=== PATIENT | female | born 1975 | race American Indian/Alaskan Native ===

== ENCOUNTER 2020-07-21 13:30 | Emergency (ER) | payer MEDICAID ==
[2020-07-21] MEDS ORDERED: SODIUM CHLORIDE 0.9% 1000 ML 2,000 ML IV ONE (15:56)
[2020-07-21] MEDS ORDERED: ONDANSETRON 4 MG/2 ML INJ IV ONE (15:56)
[2020-07-21 16:00] LABS: Basophils % (Auto) 0.1 % (0.0-1.8); Eosinophils # (Auto) 0.1 K/mm3 (0.0-0.4); Eosinophils % (Auto) 0.6 % (0.0-4.3); Hemoglobin 12.6 gm/dl (10.1-14.3); Lymphocytes # (Auto) 1.9 K/mm3 (1.2-5.4); Lymphocytes % (Auto) 15.4 % (13.4-35.0); Mean Corpuscular HGB Conc 33 % (30-34); Mean Corpuscular Volume 96 fl (79-97); Monocytes # (Auto) 0.8 K/mm3 (0.0-0.8); Monocytes % (Auto) 6.3 % (0.0-7.3); Platelet Count 306 K/mm3 (140-440); Red Blood Count 3.97 M/mm3 (3.65-5.03); Red Cell Distribution Width 13.7 % (13.2-15.2)
--- NOTE | 2020-07-21 16:02 | Emergency Department Report ---
ED N/V/D HPI - General Chief complaint: Nausea/Vomiting/Diarrhea Stated complaint: 9.5WKS /VOMITING/DEHYDRATED Time Seen by Provider: 07/21/20 15:55 Source: patient Mode of arrival: Ambulatory Limitations: No Limitations - History of Present Illness Initial comments: Is a pleasant 44-year-old female presents the emergency department with chief c omplaint of nausea and vomiting. Patient reports she is 9-1/2 weeks and went to her [facility] this morning for the first time and they sent to the emergency department due to concerns for dehydration. She reports she has lost 4 pounds since the started. This is her fifth . She denies any lower abdominal pain, vaginal bleeding, fever, chills, night sweats, headache, dizziness, blurry vision, hematemesis, melena, hematochezia or any other associated symptoms. She denies any pain. - Related Data Previous Rx's Medication Instructions Recorded Last Taken Type Promethazine [Phenergan] 25 mg PO Q6HR PRN #20 tab 07/21/20 Unknown Rx Allergies Allergy/AdvReac Type Severity Reaction Status Date / Time Penicillins Allergy Rash Verified 12/28/13 10:42 ED Review of Systems ROS: Stated complaint: 9.5WKS /VOMITING/DEHYDRATED Other details as noted in HPI Constitutional: denies: chills, fever Eyes: denies: eye pain, eye discharge, vision change ENT: denies: ear pain, throat pain Respiratory: denies: cough, shortness of breath, wheezing Cardiovascular: denies: chest pain, palpitations Endocrine: no symptoms reported Gastrointestinal: as per HPI, nausea. denies: abdominal pain, diarrhea Genitourinary: denies: urgency, dysuria, discharge Musculoskeletal: denies: back pain, joint swelling, arthralgia Skin: denies: rash, lesions Neurological: denies: headache, weakness, paresthesias Psychiatric: denies: anxiety, depression Hematological/Lymphatic: denies: easy bleeding, easy bruising ED Past Medical Hx - Past Medical History Previous Medical History?: Yes Hx Headaches / Migraines: Yes Additional medical history: Fibromyalgia - Surgical History Past Surgical History?: Yes Additional Surgical History: c section x 3 - Social History Smoking Status: Never Smoker - Medications Home Medications: Home Medications Medication Instructions Recorded Confirmed Last Taken Type Promethazine [Phenergan] 25 mg PO Q6HR PRN #20 tab 07/21/20 Unknown Rx ED Physical Exam - General Limitations: No Limitations General appearance: alert, in no apparent distress - Head Head exam: Present: atraumatic, normocephalic - Eye Eye exam: Present: normal appearance, PERRL, EOMI Pupils: Present: normal accommodation - ENT ENT exam: Present: normal exam, normal orophraynx, mucous membranes moist - Neck Neck exam: Present: normal inspection, full ROM. Absent: tenderness, menin gismus - Respiratory Respiratory exam: Present: normal lung sounds bilaterally. Absent: respiratory distress, wheezes, rales, rhonchi, stridor - Cardiovascular Cardiovascular Exam: Present: regular rate, normal rhythm, normal heart sounds. Absent: systolic murmur, diastolic murmur, rubs, gallop - GI/Abdominal GI/Abdominal exam: Present: soft, normal bowel sounds. Absent: distended, tenderness, guarding, rebound, rigid - Extremities Exam Extremities exam: Present: normal inspection, full ROM, normal capillary refill. Absent: tenderness, calf tenderness - Back Exam Back exam: Present: normal inspection, full ROM. Absent: tenderness, CVA tenderness (R), CVA tenderness (L) - Neurological Exam Neurological exam: Present: alert, oriented X3, normal gait - Psychiatric Psychiatric exam: Present: normal affect, normal mood - Skin Skin exam: Present: warm, dry, intact, normal color. Absent: rash ED Course Vital Signs 07/21/20 13:44 Temperature 97.8 F Pulse Rate 73 Respiratory 16 Rate Blood Pressure 113/71 O2 Sat by Pulse 100 Oximetry - Reevaluation(s) Reevaluation #1: 07/21/20 16:02 Patient is nontoxic in no acute distress, mucous membranes are moist. Vital signs are stable. I did order 2 L of normal saline and antiemetics. If the patient is feeling better and able tolerate p.o. fluids will discharge her home with antiemetics and outpatient follow-up. She is agreeable this plan. 07/21/20 16:02 Reevaluation #2: 07/21/20 16:48 On reevaluation patient is feeling much better. Labs returned relatively unremarkable. Plan to discharge the patient home with antiemetics and [facility] follow-up. Recommend she return the emerge department any change or worsening symptoms. She verbalized understand the diagnosis, treatment plan and follow-up instructions and all of her questions were answered. ED Medical Decision Making - Lab Data Result diagrams: 07/21/20 15:35 07/21/20 15:35 Lab Results 07/21/20 07/21/20 07/21/20 Range/Units 15:35 15:35 15:35 WBC 12.6 H (4.5-11.0) K/mm3 RBC 3.97 (3.65-5.03) M/mm3 Hgb 12.6 (10.1-14.3) gm/dl Hct 38.0 (30.3-42.9) % MCV 96 (79-97) fl MCH 32 (28-32) pg MCHC 33 (30-34) % RDW 13.7 (13.2-15.2) % Plt Count 306 (140-440) K/mm3 Lymph % (Auto) 15.4 (13.4-35.0) % Graham % (Auto) 6.3 (0.0-7.3) % Eos % (Auto) 0.6 (0.0-4.3) % Baso % (Auto) 0.1 (0.0-1.8) % Lymph # (Auto) 1.9 (1.2-5.4) K/mm3 Graham # (Auto) 0.8 (0.0-0.8) K/mm3 Eos # (Auto) 0.1 (0.0-0.4) K/mm3 Baso # (Auto) 0.0 (0.0-0.1) K/mm3 Seg Neutrophils % 77.6 H (40.0-70.0) % Seg Neutrophils # 9.8 H (1.8-7.7) K/mm3 Sodium 135 L (137-145) mmol/L Potassium 4.0 (3.6-5.0) mmol/L Chloride 99.7 (98-107) mmol/L Carbon Dioxide 25 (22-30) mmol/L Anion Gap 14 mmol/L BUN 9 (7-17) mg/dL Creatinine 0.6 (0.6-1.2) mg/dL Estimated GFR > 60 ml/min BUN/Creatinine Ratio 15 % Glucose 88 (65-100) mg/dL Calcium 9.9 (8.4-10.2) mg/dL Total Bilirubin 0.60 (0.1-1.2) mg/dL AST 13 (5-40) units/L ALT 8 (7-56) units/L Alkaline Phosphatase 51 (35-129) units/L Total Protein 7.7 (6.3-8.2) g/dL Albumin 4.0 (3.9-5) g/dL Albumin/Globulin Ratio 1.1 % Lipase 12 L (13-60) units/L HCG, Quant [id number] H (0-4) mIU/mL - Medical Decision Making Patient nontoxic in no acute distress. Vital signs stable. Abdominal exam was benign. She was tolerating p.o. fluids and felt much better after IV fluids and antiemetics. I recommended follow-up with [facility] return the emerge department change or worsening symptoms. She verbalized understand the diagnosis, treatment plan and follow-up instructions and all of her questions were answered. - Differential Diagnosis Hyperemesis gravidarum, enteritis, small bowel obstruction Critical care attestation.: If time is entered above; I have spent that time in minutes in the direct care of this critically ill patient, excluding procedure time. ED Disposition Clinical Impression: Hyperemesis gravidarum Disposition: DC- TO HOME OR SELFCARE Is pt being admited?: No Condition: Stable Instructions: Hyperemesis Gravidarum Prescriptions: Promethazine [Phenergan] 25 mg PO Q6HR PRN #20 tab PRN Reason: Nausea Referrals: [facility] [Provider Group] - 3-5 Days [facility] [Provider Group] - 3-5 Days Forms: Work/School Release Form(ED) Time of Disposition: 16:49
[2020-07-21 16:08] LABS: Alanine Aminotransferase 8 units/L (7-56); Blood Urea Nitrogen 9 mg/dL (7-17); Calcium 9.9 mg/dL (8.4-10.2); Hemolysis Index 0
[2020-07-21 16:15] LABS: BUN/Creatinine Ratio 15
[2020-07-21 18:56] VITALS: BP 128/78
== END 2020-07-21 18:56 | disposition home or self-care (01) ==
LOC: ED 13:30
DX: O21.0 Mild hyperemesis gravidarum (principal); O21.8 Other vomiting complicating pregnancy; G43.909 Migraine, unspecified, not intractable, without status migrainosus; Z3A.09 9 weeks gestation of pregnancy; Z98.890 Other specified postprocedural states; Z79.899 Other long term (current) drug therapy; Z88.0 Allergy status to penicillin
CPT/HCPCS: 36415; 80053; 83690; 84702; 85025; 96361; 96374; 99283; J2405; J7030

== ENCOUNTER 2020-12-02 12:27 | Outpatient (CLI) | payer MEDICAID ==
[2020-12-02] MEDS ORDERED: LACTATED RINGERS 1,000 ML IV SCH (13:00)
[2020-12-02] MEDS ORDERED: ONDANSETRON 4 MG/2 ML INJ IV ONE (13:19)
[2020-12-02 13:31] LABS: Bacteria,Urine 2+ /HPF (Negative); Bilirubin,Urine NEG (Negative); Blood,Urine SM (Negative); Color,Urine Yellow (Yellow); Mucus,Urine FEW /HPF; Urobilinogen,Urine < 2.0 mg/dL (<2.0)
[2020-12-02 14:38] LABS: Hemoglobin 11.4 gm/dl (10.1-14.3); Mean Corpuscular HGB Conc 32 % (30-34); Mean Corpuscular Volume 86 fl (79-97); Platelet Count 367 K/mm3 (140-440); Red Blood Count 4.06 M/mm3 (3.65-5.03); Red Cell Distribution Width 16.6 % (13.2-15.2)
[2020-12-02 15:02] LABS: Alanine Aminotransferase 13 units/L (7-56); Albumin 3.6 g/dL (3.9-5); BUN/Creatinine Ratio 13; Blood Urea Nitrogen 8 mg/dL (7-17); Calcium 9.6 mg/dL (8.4-10.2); Hemolysis Index 153
[2020-12-02 15:27] VITALS: BP 107/69
[2020-12-02] MEDS ORDERED: cefTRIAXone/NS 1 GM/50 ML 1 GM/50 ML BAG IV ONE (15:30)
== END 2020-12-02 17:00 | disposition home or self-care (01) ==
LOC: TRG 12:27 → APU 12:29 → TRG 17:00
PROVIDERS: ATTEND Obstetrics & Gynecology
DX: O21.2 Late vomiting of pregnancy (principal); O47.03 False labor before 37 completed weeks of gestation, third trimester; O09.523 Supervision of elderly multigravida, third trimester; Z3A.28 28 weeks gestation of pregnancy
CPT/HCPCS: 36415; 59025; 80053; 81001; 85027; 87086; 96361; 96365; 96367; J0696; J2405; J7120; 96360

== ENCOUNTER 2021-01-20 21:54 | Outpatient (CLI) | payer MEDICAID ==
[2021-01-20 22:51] VITALS: BP 117/57
[2021-01-20] MEDS ORDERED: LACTATED RINGERS 1,000 ML ONE (23:01)
[2021-01-20] MEDS ORDERED: LACTATED RINGERS 1,000 ML IV ONE (23:08)
== END 2021-01-21 00:45 | disposition home or self-care (01) ==
LOC: TRG 21:54 → APU 22:04 → TRG 01-21 00:45
DX: O36.8130 Decreased fetal movements, third trimester, not applicable or unspecified (principal); O62.9 Abnormality of forces of labor, unspecified; O09.523 Supervision of elderly multigravida, third trimester; Z3A.35 35 weeks gestation of pregnancy
CPT/HCPCS: 59025; J7120; 96360

== ENCOUNTER 2021-01-30 12:47 | Inpatient (IN) | payer MEDICAID ==
[2021-01-30] MEDS ORDERED: LOPERAMIDE 2 MG CAP PO PRN (13:31)
[2021-01-30] MEDS ORDERED: miSOPROStol 200 MCG TAB PR PRN (13:31)
[2021-01-30] MEDS ORDERED: MINERAL OIL 30 ML ORAL LIQD PO PRN (13:31)
[2021-01-30] MEDS ORDERED: TERBUTALINE 1 MG/1 ML INJ SUB-Q PRN (13:31)
[2021-01-30] MEDS ORDERED: OXYTOCIN 10 UNIT/1 ML INJ IM PRN (13:31)
[2021-01-30] MEDS ORDERED: LIDOCAINE (2%) 20 MG/1 ML VIAL 20 ML MDV INFILTRATI ONE (13:31)
[2021-01-30] MEDS ORDERED: METHYLERGONOVINE MALEATE 0.2 MG/ML VIAL IM PRN (13:31)
[2021-01-30] MEDS ORDERED: ePHEDrine SULFATE 50 MG/1 ML INJ IV PRN ×2 (13:31→22:53)
[2021-01-30] MEDS ORDERED: BUTORPHANOL 2 MG/1 ML INJ IV PRN (13:31)
[2021-01-30] MEDS ORDERED: CARBOPROST TROMETHAMINE 250 MCG/1 ML INJ IM PRN (13:31)
[2021-01-30] MEDS ORDERED: OXYTOCIN DRIP 30 UNITS/500 ML BAG IV SCH (14:00)
--- NOTE | 2021-01-30 14:37 | Ultrasound Report ---
ULTRASOUND OBSTETRIC LIMITED INDICATION / CLINICAL INFORMATION: NO HEART BEAT. TECHNIQUE: Transabdominal ultrasound imaging. COMPARISON: None available. FINDINGS: HEART RATE (beats per minute): 0 AMNIOTIC FLUID INDEX (cm) = not measured PRESENTATION: Cephalic. ADDITIONAL FINDINGS: None. IMPRESSION: demise Signer Name: Clayton Valles Jr, MD Signed: 01/30/2021 2:32 PM Workstation Name: [id number]
[2021-01-30 16:01] LABS: Hematocrit 33.3 % (30.3-42.9); Hemoglobin 10.3 gm/dl (10.1-14.3); Mean Corpuscular HGB Conc 31 % (30-34); Mean Corpuscular Volume 78 fl (79-97); Platelet Count 291 K/mm3 (140-440); Red Blood Count 4.25 M/mm3 (3.65-5.03); Red Cell Distribution Width 19.4 % (13.2-15.2)
[2021-01-30] MEDS ORDERED: miSOPROStol 25 MCG TAB VG PRN (17:00)
[2021-01-30] MEDS ORDERED: miSOPROStol 25 MCG TAB VG SCH (17:00)
--- NOTE | 2021-01-30 19:35 | History and Physical Report ---
History of Present Illness Date of examination: 01/30/21 Date of admission: 01/30/21 12:48 Chief complaint: Sent by [facility] for delivery due to demise at 37 weeks, 1 day gestation. History of present illness: 45 year old presents to L&D for delivery due to demise. Saw [facility] today and had ultrasound that showed demise, no cardiac activity and ascites. Patient received care at [facility]; no [facility] records are available. LMP 02/25/21. EDC 02/19/21. EGA 37 weeks, 1 day gestation. 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 labs are not available; will request records when office opens tomorrow morning. Past History Past Medical History: fibromyalgia, other (obesity) Past Surgical History: section (times 3) [facility] History: herpes. denies: chlamydia, gonorrhea, hepatitis B, hepatitis C, HIV, syphilis, trichomonas Family/Genetic History: diabetes, heart disease, hypertension, stroke Social history: lives with family, full code. denies: smoking, alcohol abuse, prescription drug abuse, IV drug use - Obstetrical History Expected Date of Delivery: 02/19/21 Actual Gestation: 37 Week(s) 1 Day(s) : 5 Para: 4 Hx # Term Pregnancies: 4 Number of Pregnancies: 0 Spontaneous Abortions: 0 Induced : 0 Number of Living Children: 4 Medications and Allergies Allergies Allergy/AdvReac Type Severity Reaction Status Date / Time Penicillins Allergy Rash Verified 12/28/13 10:42 Home Medications Medication Instructions Recorded Confirmed Last Taken Type Promethazine [Phenergan] 25 mg PO Q6HR PRN #20 tab 07/21/20 Unknown Rx Active Meds: Active Medications Butorphanol Tartrate (Butorphanol 2 Mg/1 Ml Inj) 2 mg IV Q2H PRN PRN Reason: Pain , Severe (7-10) Carboprost Tromethamine (Carboprost Tromethamine 250 Mcg/1 Ml Inj) 250 mcg IM ONCE PRN PRN Reason: Uterine Bleeding Ephedrine Sulfate (Ephedrine Sulfate 50 Mg/1 Ml Inj) 10 mg IV Q2M PRN PRN Reason: Hypotension Oxytocin/Sodium Chloride (Pitocin/Ns 30 Unit/500ml) 30 units in 500 mls @ 2 mls/hr IV TITR GIO; Protocol Lactated Ringer's (Lactated Ringers) 1,000 mls @ 125 mls/hr IV DIRECT GIO Loperamide HCl (Loperamide 2 Mg Cap) 2 mg PO ONCE PRN PRN Reason: give with Hemabate Methylergonovine Maleate (Methylergonovine Maleate 0.2 Mg/Ml Vial) 0.2 mg IM ONCE PRN PRN Reason: Uterine Bleeding Mineral Oil (Mineral Oil 30 Ml Oral Liqd) 30 ml PO QHS PRN PRN Reason: Constipation Misoprostol (Misoprostol 200 Mcg Tab) 800 mcg NH ONCE PRN PRN Reason: Uterine Bleeding Misoprostol (Misoprostol 25 Mcg Tab) 25 mcg VG Q10H [facility] Stop: 01/31/21 03:01 Oxytocin (Oxytocin 10 Unit/1 Ml Inj) 10 unit IM ONCE PRN PRN Reason: Uterine Bleeding Terbutaline Sulfate (Terbutaline 1 Mg/1 Ml Inj) 0.25 mg SUB-Q ONCE PRN PRN Reason: Hyperstimulation/Hypertonicity Review of Systems All systems: negative (grief process) - Vital Signs Vital signs: Vital Signs Pulse BP 99 H 120/80 01/30/21 13:45 01/30/21 13:45 Temp Pulse Resp BP Pulse Ox 98 F 99 H 16 120/80 01/30/21 14:10 01/30/21 13:45 01/30/21 14:10 01/30/21 13:45 - Physical Exam Abdomen: Positive: normal appearance, soft. Negative: distention, tenderness, guarding, rigidity Genitourinary (Female): Positive: normal external genitalia, normal perenium. Negative: perineal/vulvar lesions Vagina: Positive: normal moisture Uterus: Positive: enlarged. Negative: tender Anus/Rectum: Positive: normal perianal skin Extremities: Positive: normal - Obstetrical Uterine Contraction Monitor Mode: External Cervical Dilatation: 0.5 Cervical Effacement Percentage: 30 station: -3 Uterine Contraction Pattern: Absent Results Result Diagrams: 01/30/21 15:39 Abnormal lab results 01/30/21 Range/Units 15:39 WBC 11.5 H (4.5-11.0) K/mm3 MCV 78 L (79-97) fl MCH 24 L (28-32) pg RDW 19.4 H (13.2-15.2) % All other labs normal. Assessment and Plan A: at 37 weeks, 1 day gestation. demise. History of 3 previous sections. ICP. Obesity. P: Admit. [place] for contraction monitoring. Epidural. Cytotec for cervical ripening per Dr. Hay.
[2021-01-30] MEDS ORDERED: NALOXONE 2 MG/2 ML INJ IV PRN (22:53)
--- NOTE | 2021-01-30 22:53 | Anesthesia Consultation ---
Anesthesia Consult and Med Hx Date of service: 01/30/21 - Airway Anesthetic Teeth Evaluation: Poor Mental/Hyoid Distance: Adequate Mallampati Class: Class II Intubation Access Assessment: Probably Good - Pulmonary Exam CTA: Yes - Cardiac Exam Cardiac Exam: RRR - Pre-Operative Health Status ASA Pre-Surgery Classification: ASA2 Proposed Anesthetic Plan: Epidural - Pre-Anesthesia Comment Pre-Anesthesia Comments: csectionx3 - Pulmonary Hx Smoking: No Hx Asthma: No Hx Respiratory Symptoms: No SOB: No COPD: No Home Oxygen Therapy: No Hx Pneumonia: No Hx Sleep Apnea: No - Cardiovascular System Hx Hypertension: No Hx Coronary Artery Disease: No Hx Heart Attack/AMI: No Hx Angina: No Hx Percutaneous Transluminal Coronary Angioplasty (PTCA): No Hx Cardia Arrhythmia: No Hx Pacemaker: No Hx Internal Defibrillator: No Hx Valvular Heart Disease: No Hx Heart Murmur: No Hx Peripheral Vascular Disease: No - Central Nervous System Hx Neuromuscular Disorder: Yes (fibromyalgia) Hx Seizures: No CVA: No Hx Back Pain: No Hx Psychiatric Problems: No - Gastrointestinal Hx Ulcer: No Hx Gastroesophageal Reflux Disease: Yes - Endocrine Hx Renal Disease: No Hx End Stage Renal Disease: No Hx Cirrhosis: No Hx Liver Disease: No Hx Insulin Dependent Diabetes: No Hx Non-Insulin Dependent Diabetes: No Hx Thyroid Disease: No Hx Hypothyroidism: No Hx Hyperthyroidism: No - Hematic Hx Anemia: Yes Hx Sickle Cell Disease: No - Other Systems Hx Alcohol Use: No Hx Substance Use: No Hx Cancer: No Hx Obesity: Yes
--- NOTE | 2021-01-30 23:23 | Progress Note ---
Labor Epidural - Labor Epidural Start Time: 23:03 Stop Time: 23:11 Performed by:: MIKE BROWN Procedure: Patient is requesting a laboring epidural for laboring pain. Patient IDed, H&P reviewed, all questions and concerns were answered, and consent was signed. Timeout was performed at bedside. Patient in sitting position. Sterile prep and drape was performed. [3] ml of 1% lidocaine skin wheal at L[3]- L [4]. 18- gauge Tuohy epidural needle was advanced to loss of resistance with saline technique. Negative CSF negative blood. Epidural catheter advanced to [12] centimeters. [NEGATIVE] Aspiration [NEGATIVE] test dose. Sterile dressing applied. Patient tolerated procedure.
[2021-01-30] MEDS: fentaNYL-BUPIV 2 MCG/ML-0.125% 200 MCG/100 ML BAG EPIDURAL SCH (23:58)
[2021-01-31] MEDS ORDERED: ZOLPIDEM 5 MG TAB PO ONE (00:18)
[2021-01-31] MEDS: LACTATED RINGERS 1,000 ML IV SCH ×2 (05:14→20:11)
--- NOTE | 2021-01-31 08:13 | Progress Note ---
Subjective - Subjective Date of service: 01/31/21 Interval history: cervix 3cm/80/-1 AROM uterus soft, NT plan for low dose oxytocin Maternal status reassuring at bedside Vincent Hay MD Objective - Vital Signs Vital Signs: Vital Signs - 12hr 01/30/21 01/30/21 01/30/21 23:08 23:10 23:13 Temperature 97.3 F L Pulse Rate 127 H 127 H 115 H Respiratory 16 Rate Blood Pressure 121/76 129/66 Blood Pressure 121/76 [Left] O2 Sat by Pulse 98 Oximetry 01/30/21 01/30/21 01/30/21 23:16 23:18 23:20 Temperature Pulse Rate 104 H 111 H 115 H Respiratory Rate Blood Pressure 120/64 125/62 124/60 Blood Pressure [Left] O2 Sat by Pulse Oximetry 01/30/21 01/30/21 01/30/21 23:22 23:24 23:26 Temperature Pulse Rate 109 H 103 H 102 H Respiratory Rate Blood Pressure 123/63 120/67 116/64 Blood Pressure [Left] O2 Sat by Pulse Oximetry 01/30/21 01/30/21 01/30/21 23:28 23:30 23:32 Temperature Pulse Rate 108 H 105 H 103 H Respiratory 16 Rate Blood Pressure 116/63 121/76 116/63 Blood Pressure [Left] O2 Sat by Pulse Oximetry 01/30/21 01/30/21 01/30/21 23:34 23:36 23:38 Temperature Pulse Rate 104 H 104 H 100 H Respiratory Rate Blood Pressure 113/60 117/62 117/63 Blood Pressure [Left] O2 Sat by Pulse Oximetry 01/30/21 01/30/21 01/30/21 23:40 23:42 23:44 Temperature Pulse Rate 100 H 99 H 98 H Respiratory Rate Blood Pressure 115/65 113/61 113/58 Blood Pressure [Left] O2 Sat by Pulse Oximetry 01/30/21 01/30/21 01/30/21 23:46 23:48 23:50 Temperature Pulse Rate 103 H 100 H 104 H Respiratory Rate Blood Pressure 117/68 114/63 116/58 Blood Pressure [Left] O2 Sat by Pulse Oximetry 01/30/21 01/30/21 01/30/21 23:52 23:54 23:56 Temperature Pulse Rate 97 H 96 H 105 H Respiratory Rate Blood Pressure 115/60 113/62 114/62 Blood Pressure [Left] O2 Sat by Pulse Oximetry 01/30/21 01/31/21 01/31/21 23:58 00:29 00:59 Temperature Pulse Rate 101 H 97 H 96 H Respiratory Rate Blood Pressure 113/67 125/70 109/61 Blood Pressure [Left] O2 Sat by Pulse Oximetry 01/31/21 01/31/21 01/31/21 01:29 01:58 01:59 Temperature Pulse Rate 96 H 88 Respiratory 14 Rate Blood Pressure 118/60 114/64 Blood Pressure [Left] O2 Sat by Pulse Oximetry 01/31/21 01/31/21 01/31/21 03:00 04:00 05:00 Temperature Pulse Rate 98 H 98 H 98 H Respiratory Rate Blood Pressure 127/61 116/61 122/65 Blood Pressure [Left] O2 Sat by Pulse Oximetry 01/31/21 01/31/21 01/31/21 06:01 07:00 08:01 Temperature Pulse Rate 94 H 107 H 103 H Respiratory Rate Blood Pressure 116/56 100/51 110/55 Blood Pressure [Left] O2 Sat by Pulse Oximetry - Labs Labs: Abnormal Labs 01/30/21 15:39 WBC 11.5 H MCV 78 L MCH 24 L RDW 19.4 H Laboratory Results - last 24 hr 01/30/21 01/30/21 01/30/21 15:39 16:53 16:53 WBC 11.5 H RBC 4.25 Hgb 10.3 Hct 33.3 MCV 78 L MCH 24 L MCHC 31 RDW 19.4 H Plt Count 291 Syphilis IgG Antibody Nonreactive Blood Type A POSITIVE Antibody Screen Negative
[2021-01-31] MEDS: fentaNYL-BUPIV 2 MCG/ML-0.125% 200 MCG/100 ML BAG EPIDURAL SCH ×2 (08:54→20:37)
--- NOTE | 2021-01-31 15:28 | Progress Note ---
Subjective - Subjective Date of service: 01/31/21 Interval history: late note cervix 5cm/100%/-1 continue oxytocin per protocol Maternal status reassuring at bedside Vincent Hay MD Objective - Vital Signs Vital Signs: Vital Signs - 12hr 01/31/21 01/31/21 01/31/21 04:00 05:00 06:01 Temperature Pulse Rate 98 H 98 H 94 H Blood Pressure 116/61 122/65 116/56 O2 Sat by Pulse Oximetry 01/31/21 01/31/21 01/31/21 07:00 08:01 08:20 Temperature 98.4 F Pulse Rate 107 H 103 H Blood Pressure 100/51 110/55 O2 Sat by Pulse Oximetry 01/31/21 01/31/21 01/31/21 09:00 09:22 10:00 Temperature Pulse Rate 100 H 95 H 103 H Blood Pressure 115/59 119/64 O2 Sat by Pulse 92 Oximetry 01/31/21 01/31/21 01/31/21 11:00 11:32 12:04 Temperature Pulse Rate 105 H 102 H 102 H Blood Pressure 124/67 130/68 127/67 O2 Sat by Pulse Oximetry 01/31/21 01/31/21 01/31/21 12:32 13:02 13:34 Temperature Pulse Rate 100 H 99 H 93 H Blood Pressure 125/66 120/58 122/67 O2 Sat by Pulse Oximetry 01/31/21 01/31/21 01/31/21 14:03 14:32 15:02 Temperature Pulse Rate 101 H 104 H 102 H Blood Pressure 116/63 110/59 107/59 O2 Sat by Pulse 94 Oximetry - Labs Labs: Abnormal Labs 01/30/21 15:39 WBC 11.5 H MCV 78 L MCH 24 L RDW 19.4 H Laboratory Results - last 24 hr 01/30/21 01/30/21 01/30/21 15:39 16:53 16:53 WBC 11.5 H RBC 4.25 Hgb 10.3 Hct 33.3 MCV 78 L MCH 24 L MCHC 31 RDW 19.4 H Plt Count 291 Syphilis IgG Antibody Nonreactive Coronavirus (PCR) Blood Type A POSITIVE Antibody Screen Negative 01/31/21 09:15 WBC RBC Hgb Hct MCV MCH MCHC RDW Plt Count Syphilis IgG Antibody Coronavirus (PCR) Negative Blood Type Antibody Screen
--- NOTE | 2021-01-31 19:35 | Progress Note ---
Subjective - Subjective Date of service: 01/31/21 Interval history: Patient complete, poor pushing effort continue to increase oxytocin per protocol Maternal status reassuring at bedside Vincent Hay MD Objective - Vital Signs Vital Signs: Vital Signs - 12hr 01/31/21 01/31/21 01/31/21 08:01 08:20 09:00 Temperature 98.4 F Pulse Rate 103 H 100 H Blood Pressure 110/55 115/59 O2 Sat by Pulse Oximetry 01/31/21 01/31/21 01/31/21 09:22 10:00 11:00 Temperature Pulse Rate 95 H 103 H 105 H Blood Pressure 119/64 124/67 O2 Sat by Pulse 92 Oximetry 01/31/21 01/31/21 01/31/21 11:32 12:04 12:32 Temperature Pulse Rate 102 H 102 H 100 H Blood Pressure 130/68 127/67 125/66 O2 Sat by Pulse Oximetry 01/31/21 01/31/21 01/31/21 13:02 13:34 14:03 Temperature Pulse Rate 99 H 93 H 101 H Blood Pressure 120/58 122/67 116/63 O2 Sat by Pulse 94 Oximetry 01/31/21 01/31/21 01/31/21 14:32 15:02 15:33 Temperature Pulse Rate 104 H 102 H 96 H Blood Pressure 110/59 107/59 113/61 O2 Sat by Pulse Oximetry 01/31/21 01/31/21 01/31/21 16:04 16:23 16:33 Temperature Pulse Rate 95 H 94 H 93 H Blood Pressure 105/55 98/63 O2 Sat by Pulse 92 Oximetry 01/31/21 01/31/21 01/31/21 16:40 17:04 17:19 Temperature Pulse Rate 98 H 94 H 95 H Blood Pressure 105/54 O2 Sat by Pulse 90 100 Oximetry 01/31/21 01/31/21 01/31/21 17:24 17:29 17:33 Temperature Pulse Rate 98 H 99 H 97 H Blood Pressure 128/65 O2 Sat by Pulse 100 100 Oximetry 01/31/21 01/31/21 01/31/21 17:34 17:39 17:44 Temperature Pulse Rate 101 H 95 H 95 H Blood Pressure O2 Sat by Pulse 100 100 100 Oximetry 01/31/21 01/31/21 01/31/21 17:49 17:54 17:59 Temperature Pulse Rate 99 H 107 H 104 H Blood Pressure O2 Sat by Pulse 100 100 100 Oximetry 01/31/21 01/31/21 01/31/21 18:02 18:04 18:09 Temperature Pulse Rate 96 H 101 H 99 H Blood Pressure 139/64 O2 Sat by Pulse 100 100 Oximetry 01/31/21 01/31/21 01/31/21 18:14 18:19 18:24 Temperature Pulse Rate 98 H 97 H 106 H Blood Pressure O2 Sat by Pulse 100 100 100 Oximetry 01/31/21 01/31/21 01/31/21 18:29 18:33 18:34 Temperature Pulse Rate 103 H 116 H 100 H Blood Pressure 118/65 O2 Sat by Pulse 100 88 100 Oximetry 01/31/21 01/31/21 01/31/21 18:39 18:44 18:49 Temperature Pulse Rate 99 H 102 H 108 H Blood Pressure O2 Sat by Pulse 100 100 99 Oximetry 01/31/21 01/31/21 01/31/21 18:54 18:55 18:59 Temperature Pulse Rate 103 H 106 H 108 H Blood Pressure O2 Sat by Pulse 100 92 100 Oximetry 01/31/21 01/31/21 01/31/21 19:04 19:09 19:14 Temperature Pulse Rate 105 H 111 H 110 H Blood Pressure 133/54 O2 Sat by Pulse 100 100 96 Oximetry 01/31/21 01/31/21 01/31/21 19:19 19:24 19:29 Temperature Pulse Rate 112 H 109 H 111 H Blood Pressure O2 Sat by Pulse 100 100 100 Oximetry 01/31/21 19:32 Temperature Pulse Rate 115 H Blood Pressure 130/61 O2 Sat by Pulse Oximetry - Labs Labs: Abnormal Labs 01/30/21 15:39 WBC 11.5 H MCV 78 L MCH 24 L RDW 19.4 H Laboratory Results - last 24 hr 01/31/21 09:15 Coronavirus (PCR) Negative
[2021-01-31] MEDS ORDERED: ceFAZolin/Water 2 GM/20 ML 2 GM/20 ML SYRINGE IV ONE (22:20)
--- NOTE | 2021-02-01 01:27 | Procedure Note ---
OB Delivery Note - Delivery Date of Delivery: 02/01/21 Surgeon: NEVILLE LINDSEY Estimated blood loss: 200cc - Vaginal Delivery position: OA Intrapartum events: shoulder dystocia, other(please specify) (IUFD) Delivery induction: misoprostol Delivery augmentation: rupture of membranes, pitocin Delivery monitor: external uterine Route of delivery: Delivery placenta: spontaneous Delivery cord: 3 umbilical vessels Episiotomy: midline Delivery laceration: 4th degree Delivery repair: vicryl Anesthesia: epidural Delivery comments: IUFD delivered over intact perineum. Shoulder dystocia noted at delivery, released with suprapubic pressure Midline episiotomy with fourth degree extension repaird with 0 vicryl rectum patent at the completion nof the procedure Intact placenta delivered spontaneously Firm fundus after methergine 0.2mg IMx1 dose given for atony prophylaxis in the setting of prolonged rupture and IUFD. EBL 200ml Mom to All sponge, needle and instrument counts correctx2 CHenry Lindsey MD
[2021-02-01] MEDS ORDERED: PROMETHAZINE 25 MG TAB PO PRN (01:28)
[2021-02-01] MEDS ORDERED: LANOLIN/ZINC/DIMETHICONE (LANSINOH) 7 GM TP PRN (01:28)
[2021-02-01] MEDS ORDERED: PROMETHAZINE 25 MG RECT SUPP PR PRN (01:28)
[2021-02-01] MEDS ORDERED: ONDANSETRON 4 MG/2 ML INJ IV PRN (01:28)
[2021-02-01] MEDS ORDERED: WITCH HAZEL/ GLYCERIN PAD TP PRN (01:28)
[2021-02-01] MEDS ORDERED: ACETAMINOPHEN 325 MG TAB PO PRN (01:28)
[2021-02-01] MEDS ORDERED: KETOROLAC 30 MG/1 ML INJ IV PRN (01:28)
[2021-02-01] MEDS: HYDROcodone/ACETAMINOPHEN 5-325 MG TAB PO PRN ×3 (03:18→15:44)
--- NOTE | 2021-02-01 05:14 | Post Anesthesia Evaluation ---
- Post Anesthesia Evaluation Patient Participated: Yes Airway Patent: Yes Stable Respiratory Function: Yes Nausea/Vomiting: No Temp > 96.8F: Yes Pain Manageable: Yes Adequeate Hydration: Yes Anesthesia Complications: No Block Receding Appropriately: Yes Patient on Ventilator: No
[2021-02-01] MEDS: diphenhydrAMINE 25 MG CAP PO PRN (08:08)
--- NOTE | 2021-02-01 11:07 | Progress Note ---
Assessment and Plan A: day 1 S/P vaginal delivery following IOL for IUFD at term. P: Case Management to see patient. CBC, UA, urine C&S. Subjective - Subjective Date of service: 02/01/21 Principal diagnosis: day 1 S/P vaginal delivery; demise Interval history: Case management consult ordered (grief, demise). CBC, UA, urine C&S ordered. Patient reports small amount of lochia. Patient reports: appetite normal, voiding normally, pain well controlled, ambulating normally, no dizzy ambulation, no nauseated [place]: other (IUFD) Objective - Vital Signs Latest vital signs: Vital Signs Temp Pulse Resp BP BP Pulse Ox 02/01/21 10:44 16 02/01/21 08:08 16 02/01/21 07:55 98.0 F 98 H 20 105/50 98 02/01/21 04:57 97.0 F L 118 H 18 112/59 98 02/01/21 04:00 97.4 F L 117 H 18 106/61 98 02/01/21 03:18 16 02/01/21 02:17 116 H 126/78 02/01/21 02:02 114 H 128/79 02/01/21 01:47 109 H 127/72 02/01/21 01:32 112 H 121/62 02/01/21 01:17 101 H 114/62 02/01/21 01:02 109 H 120/61 02/01/21 00:22 100.7 F H 01/31/21 22:33 98.2 F 01/31/21 22:09 129 H 100 01/31/21 22:04 131 H 100 01/31/21 21:54 125 H 95 01/31/21 21:49 130 H 100 01/31/21 21:44 126 H 100 01/31/21 21:39 135 H 100 01/31/21 21:34 125 H 100 01/31/21 21:32 122 H 121/62 89 01/31/21 21:29 123 H 100 01/31/21 21:24 136 H 100 01/31/21 21:19 123 H 100 01/31/21 21:14 131 H 97 01/31/21 21:09 118 H 100 01/31/21 21:04 131 H 100 01/31/21 21:03 123 H 125/79 06 20:59 124 H 100 0621 20:54 124 H 100 06 20:49 127 H 100 06 20:44 119 H 100 06 20:40 99.2 F 123 H 18 126/65 99 06 20:39 122 H 99 01/31/21 20:34 119 H 98 01/31/21 20:32 117 H 126/65 01/31/21 20:29 115 H 99 06 20:24 114 H 99 06 20:19 113 H 98 06 20:14 114 H 100 01/31/21 20:09 114 H 98 01/31/21 20:04 117 H 99 01/31/21 20:03 115 H 128/58 01/31/21 19:59 120 H 100 06 19:54 114 H 100 01/31/21 19:50 120 H 89 01/31/21 19:49 115 H 95 01/31/21 19:44 112 H 96 01/31/21 19:39 116 H 100 01/31/21 19:34 111 H 100 01/31/21 19:32 115 H 130/61 01/31/21 19:29 111 H 100 01/31/21 19:24 109 H 100 06 19:19 112 H 100 01/31/21 19:14 110 H 96 01/31/21 19:09 111 H 100 01/31/21 19:04 105 H 133/54 100 01/31/21 18:59 108 H 100 01/31/21 18:55 106 H 92 06 18:54 103 H 100 01/31/21 18:49 108 H 99 01/31/21 18:44 102 H 100 01/31/21 18:39 99 H 100 06 18:34 100 H 118/65 100 01/31/21 18:33 116 H 88 06 18:29 103 H 100 01/31/21 18:24 106 H 100 06 18:19 97 H 100 06 18:14 98 H 100 01/31/21 18:09 99 H 100 01/31/21 18:04 101 H 100 01/31/21 18:02 96 H 139/64 01/31/21 17:59 104 H 100 01/31/21 17:54 107 H 100 01/31/21 17:49 99 H 100 01/31/21 17:44 95 H 100 01/31/21 17:39 95 H 100 01/31/21 17:34 101 H 100 01/31/21 17:33 97 H 128/65 01/31/21 17:29 99 H 100 01/31/21 17:24 98 H 100 01/31/21 17:19 95 H 100 01/31/21 17:04 94 H 105/54 01/31/21 16:40 98 H 90 01/31/21 16:33 93 H 98/63 01/31/21 16:23 94 H 92 01/31/21 16:04 95 H 105/55 01/31/21 15:33 96 H 113/61 01/31/21 15:02 102 H 107/59 01/31/21 14:32 104 H 110/59 01/31/21 14:03 101 H 116/63 94 01/31/21 13:34 93 H 122/67 01/31/21 13:02 99 H 120/58 01/31/21 12:32 100 H 125/66 01/31/21 12:04 102 H 127/67 01/31/21 11:32 102 H 130/68 Intake and Output 01/31/21 02/01/21 02/01/21 23:59 07:59 15:59 Intake Total 100 Output Total 1300 1000 Balance -1300 -900 Intake: Oral 100 Output: Urine 1300 1000 Indwelling Catheter 1300 1000 Other: Total, Intake Amount 100 Total, Output Amount 300 600 # Voids Indwelling Catheter 300 Estimated Blood Loss 200 - Exam Cardiovascular: Present: Regular rate Lungs: Present: Clear to auscultation Abdomen: Present: normal appearance, soft, normal bowel sounds. Absent: distention, tenderness, guarding, rigidity Uterus: Present: normal, firm, fundal height below umbilicus. Absent: bogginess, tenderness Extremities: Absent: tenderness
[2021-02-01 12:18] LABS: Hematocrit 21.3 % (30.3-42.9); Hemoglobin 6.5 gm/dl (10.1-14.3); Mean Corpuscular Volume 79 fl (79-97); Red Blood Count 2.71 M/mm3 (3.65-5.03)
[2021-02-01 12:19] LABS: Basophils # (Auto) 0.1 K/mm3 (0.0-0.1); Basophils % (Auto) 0.3 % (0.0-1.8); Eosinophils % (Auto) 0.1 % (0.0-4.3); Lymphocytes # (Auto) 1.9 K/mm3 (1.2-5.4); Lymphocytes % (Auto) 6.6 % (13.4-35.0); Mean Corpuscular HGB Conc 30 % (30-34); Monocytes # (Auto) 1.8 K/mm3 (0.0-0.8); Monocytes % (Auto) 6.2 % (0.0-7.3); Platelet Count 250 K/mm3 (140-440); Red Cell Distribution Width 20.4 % (13.2-15.2)
[2021-02-01] MEDS ORDERED: GENTAMICIN 100 MG in SODIUM CHLORIDE 0.9% 100 ML IV SCH (12:30)
[2021-02-01] MEDS ORDERED: SODIUM CHLORIDE 0.9% 500 ML 500 ML IV ONE (12:36)
--- NOTE | 2021-02-01 12:41 | Event Note ---
Date: 02/01/21 WBC 29.3. Hemoglobin 6.5. Ordered CMP, UA, urine culture, blood cultures. Ordered Clindamycin and Gentamicin IV. Ordered PRBCs 2 units; spoke with patient re: this and patient refused blood transfusion. Ordered Ferrous Sulfate and Colace. Consulted with Dr. Hay re: all of the above and she is in agreement with POC. Spoke with patient and patient's nurse re: POC.
[2021-02-01 14:41] LABS: Alanine Aminotransferase 9 units/L (7-56); Albumin 2.7 g/dL (3.9-5); BUN/Creatinine Ratio 12; Blood Urea Nitrogen 12 mg/dL (7-17); Calcium 8.6 mg/dL (8.4-10.2); Hemolysis Index 0
[2021-02-01] MEDS ORDERED: SODIUM CHLORIDE 0.9% 1000 ML 1,000 ML IV SCH (15:00)
[2021-02-01] MEDS: FERROUS SULFATE 325 MG TAB PO SCH ×2 (15:01→22:17)
[2021-02-01] MEDS: DOCUSATE SODIUM 100 MG CAP PO SCH ×2 (15:01→22:17)
[2021-02-01] MEDS: GENTAMICIN/NS 100 MG/100 ML 100 MG/100 ML BAG IV SCH (15:43)
[2021-02-01 21:00] LABS: Bilirubin,Urine NEG (Negative); Blood,Urine LG (Negative); Color,Urine Red (Yellow); Urobilinogen,Urine < 2.0 mg/dL (<2.0)
[2021-02-01 21:01] LABS: RBC,Urine > 182.0 /HPF (0.0-6.0); WBC,Urine > 182.0 /HPF (0.0-6.0)
[2021-02-02] MEDS: GENTAMICIN/NS 100 MG/100 ML 100 MG/100 ML BAG IV SCH ×3 (02:12→21:32)
[2021-02-02] MEDS: IBUPROFEN 600 MG TAB PO SCH ×2 (02:19→10:30)
[2021-02-02 09:01] LABS: Mean Corpuscular HGB Conc 31 % (30-34); Mean Corpuscular Volume 79 fl (79-97); Platelet Count 283 K/mm3 (140-440); Red Blood Count 2.32 M/mm3 (3.65-5.03)
[2021-02-02 09:14] LABS: Hematocrit 18.3 % (30.3-42.9); Hemoglobin 5.7 gm/dl (10.1-14.3); Red Cell Distribution Width 20.3 % (13.2-15.2)
[2021-02-02] MEDS: DOCUSATE SODIUM 100 MG CAP PO SCH ×2 (09:14→21:30)
[2021-02-02] MEDS: FERROUS SULFATE 325 MG TAB PO SCH ×2 (09:15→21:30)
[2021-02-02] MEDS ORDERED: SODIUM CHLORIDE 0.9% 500 ML 500 ML IV SCH (10:00)
[2021-02-02 11:55] LABS: Total Cells Counted 100
[2021-02-02 11:58] LABS: Anisocytosis 1+; Band Neutrophils # (Manual) 0.5 K/mm3; Hypochromasia 1+; Platelet Estimate Consistent w Auto
--- NOTE | 2021-02-02 12:19 | Progress Note ---
Assessment and Plan A: PP Day #1 S/P full term IUFD delivery Severe Anemia Blurry Vision P: Follow Routine Orders Transfuse 2 units of PRBCs Subjective - Subjective Date of service: 02/02/21 Principal diagnosis: day 1 S/P vaginal delivery; demise Patient reports: appetite normal, voiding normally, pain well controlled, flatus, ambulating normally, other (States she has "sorrow in her heart, but feels okay." Denies dizziness, shortness of breath, lightheadness. Admits to Blurry Vision) [place]: Objective - Vital Signs Latest vital signs: Vital Signs Temp Pulse Resp BP BP Pulse Ox 02/02/21 12:00 97.5 F L 120 H 16 104/66 100 02/02/21 10:30 16 02/02/21 07:58 98.7 F 106 H 18 103/58 96 02/02/21 04:44 98.6 F 77 18 108/79 02/02/21 00:43 98.0 F 108 H 16 108/53 98 02/01/21 20:33 98.1 F 98 H 18 106/60 95 02/01/21 15:59 97.8 F 101 H 19 115/68 100 02/01/21 15:44 16 Intake and Output 02/01/21 02/02/21 02/02/21 22:59 06:59 14:59 Intake Total 150 350 0 Balance 150 350 0 Intake: IV 150 150 CLEOCIN 900 MG/50 mL 900 50 50 mg In 50 ml @ 100 mls/hr IV Q8H GIO Rx#:[id number] GENTAMICIN/NS 100 MG/100 100 100 ML 100 mg In 100 ml @ 200 mls/hr IV Q8H GIO Rx#: [id number] Oral 200 Blood Product 0 Leukoreduced Red Blood 0 Cells Unit [id number] Other: Total, Intake Amount 200 # Voids Void 1 - Exam Breasts: Present: normal Cardiovascular: Present: Regular rate Lungs: Present: Clear to auscultation, Normal air movement Abdomen: Present: normal appearance, soft, normal bowel sounds Uterus: Present: normal, firm, fundal height below umbilicus Extremities: Present: edema (+1 non-pitting bilateral edema) - Labs Labs: Abnormal lab results 06/18/21 06/20/21 06/20/21 Range/Units 16:53 11:15 13:58 WBC 29.3 H (4.5-11.0) K/mm3 RBC 2.71 L (3.65-5.03) M/mm3 Hgb 6.5 L D (10.1-14.3) gm/dl Hct 21.3 L D (30.3-42.9) % MCH 24 L (28-32) pg RDW 20.4 H (13.2-15.2) % Lymph % (Auto) 6.6 L (13.4-35.0) % [place] # (Auto) 1.8 H (0.0-0.8) K/mm3 Seg Neutrophils % 86.8 H (40.0-70.0) % Seg Neuts % (Manual) (40.0-70.0) % Lymphocytes % (Manual) (13.4-35.0) % Seg Neutrophils # 25.4 H (1.8-7.7) K/mm3 Seg Neutrophils # Man (1.8-7.7) K/mm3 Monocytes # (Manual) (0.0-0.8) K/mm3 Sodium 133 L (137-145) mmol/L Carbon Dioxide 20 L (22-30) mmol/L Glucose 118 H (65-100) mg/dL Total Protein 5.1 L (6.3-8.2) g/dL Albumin 2.7 L (3.9-5) g/dL Urine WBC (Auto) (0.0-6.0) /HPF Crossmatch See Detail 02/01/21 02/02/21 Range/Units 20:40 08:19 WBC 25.6 H (4.5-11.0) K/mm3 RBC 2.32 L (3.65-5.03) M/mm3 Hgb 5.7 L* (10.1-14.3) gm/dl Hct 18.3 L* (30.3-42.9) % MCH 25 L (28-32) pg RDW 20.3 H (13.2-15.2) % Lymph % (Auto) (13.4-35.0) % [place] # (Auto) (0.0-0.8) K/mm3 Seg Neutrophils % (40.0-70.0) % Seg Neuts % (Manual) 85.0 H (40.0-70.0) % Lymphocytes % (Manual) 8.0 L (13.4-35.0) % Seg Neutrophils # (1.8-7.7) K/mm3 Seg Neutrophils # Man 21.8 H (1.8-7.7) K/mm3 Monocytes # (Manual) 1.3 H (0.0-0.8) K/mm3 Sodium (137-145) mmol/L Carbon Dioxide (22-30) mmol/L Glucose (65-100) mg/dL Total Protein (6.3-8.2) g/dL Albumin (3.9-5) g/dL Urine WBC (Auto) > 182.0 H (0.0-6.0) /HPF Crossmatch
[2021-02-02] MEDS ORDERED: SODIUM CHLORIDE 0.9% 500 ML 500 ML IV NR (15:11)
[2021-02-02] MEDS: HYDROcodone/ACETAMINOPHEN 5-325 MG TAB PO PRN (21:30)
[2021-02-02] MEDS: diphenhydrAMINE 25 MG CAP PO PRN (21:34)
[2021-02-02] MEDS: MAGNESIUM HYDROXIDE (MOM) ORAL LIQD UDC PO PRN (21:34)
[2021-02-03 01:22] LABS: Hemoglobin 7.8 gm/dl (10.1-14.3)
[2021-02-03] MEDS: IBUPROFEN 600 MG TAB PO SCH ×3 (03:37→20:20)
[2021-02-03] MEDS: GENTAMICIN/NS 100 MG/100 ML 100 MG/100 ML BAG IV SCH ×2 (05:27→14:55)
[2021-02-03] MEDS: MAGNESIUM HYDROXIDE (MOM) ORAL LIQD UDC PO PRN (15:11)
--- NOTE | 2021-02-03 20:30 | Progress Note ---
Subjective - Subjective Date of service: 02/03/21 Principal diagnosis: day 1 S/P vaginal delivery; demise Interval history: afebrile Hb stable no complaints d/c abx, repeat CBC in AM, if WNL plan for d/c to home. Vincent Hay MD Objective - Vital Signs Vital Signs: Vital Signs - 12hr 02/03/21 02/03/21 12:25 15:46 Temperature 98.0 F 98.5 F Pulse Rate 102 H 105 H Respiratory 20 18 Rate Blood Pressure 109/70 121/71 O2 Sat by Pulse 96 96 Oximetry - Labs Labs: Abnormal Labs 01/30/21 01/30/21 02/01/21 15:39 16:53 11:15 WBC 11.5 H 29.3 H RBC 2.71 L Hgb 6.5 L D Hct 21.3 L D MCV 78 L MCH 24 L 24 L RDW 19.4 H 20.4 H Lymph % (Auto) 6.6 L [place] # (Auto) 1.8 H Seg Neutrophils % 86.8 H Seg Neuts % (Manual) Lymphocytes % (Manual) Seg Neutrophils # 25.4 H Seg Neutrophils # Man Monocytes # (Manual) Sodium Carbon Dioxide Glucose Total Protein Albumin Urine WBC (Auto) Gentamicin Trough Crossmatch See Detail 02/01/21 02/01/21 02/02/21 13:58 20:40 08:19 WBC 25.6 H RBC 2.32 L Hgb 5.7 L* Hct 18.3 L* MCV MCH 25 L RDW 20.3 H Lymph % (Auto) [place] # (Auto) Seg Neutrophils % Seg Neuts % (Manual) 85.0 H Lymphocytes % (Manual) 8.0 L Seg Neutrophils # Seg Neutrophils # Man 21.8 H Monocytes # (Manual) 1.3 H Sodium 133 L Carbon Dioxide 20 L Glucose 118 H Total Protein 5.1 L Albumin 2.7 L Urine WBC (Auto) > 182.0 H Gentamicin Trough Crossmatch 02/03/21 02/03/21 01:03 15:56 WBC RBC Hgb 7.8 L Hct 24.0 L MCV MCH RDW Lymph % (Auto) [place] # (Auto) Seg Neutrophils % Seg Neuts % (Manual) Lymphocytes % (Manual) Seg Neutrophils # Seg Neutrophils # Man Monocytes # (Manual) Sodium Carbon Dioxide Glucose Total Protein Albumin Urine WBC (Auto) Gentamicin Trough 7.3 H* Crossmatch Laboratory Results - last 24 hr 02/03/21 02/03/21 01:03 15:56 Hgb 7.8 L Hct 24.0 L Gentamicin Trough 7.3 H*
[2021-02-03] MEDS: DOCUSATE SODIUM 100 MG CAP PO SCH (22:01)
[2021-02-03] MEDS: FERROUS SULFATE 325 MG TAB PO SCH (22:01)
[2021-02-03] MEDS: diphenhydrAMINE 25 MG CAP PO PRN (22:02)
[2021-02-04] MEDS: IBUPROFEN 600 MG TAB PO SCH ×3 (05:11→15:56)
[2021-02-04 06:25] LABS: Basophils # (Auto) 0.1 K/mm3 (0.0-0.1); Basophils % (Auto) 0.4 % (0.0-1.8); Eosinophils # (Auto) 0.2 K/mm3 (0.0-0.4); Eosinophils % (Auto) 1.6 % (0.0-4.3); Hemoglobin 8.1 gm/dl (10.1-14.3); Lymphocytes # (Auto) 1.8 K/mm3 (1.2-5.4); Lymphocytes % (Auto) 12.5 % (13.4-35.0); Mean Corpuscular HGB Conc 32 % (30-34); Mean Corpuscular Volume 80 fl (79-97); Monocytes # (Auto) 0.9 K/mm3 (0.0-0.8); Monocytes % (Auto) 6.3 % (0.0-7.3); Platelet Count 316 K/mm3 (140-440); Red Blood Count 3.11 M/mm3 (3.65-5.03); Red Cell Distribution Width 18.7 % (13.2-15.2)
[2021-02-04] MEDS: FERROUS SULFATE 325 MG TAB PO SCH (09:40)
[2021-02-04] MEDS: DOCUSATE SODIUM 100 MG CAP PO SCH (09:40)
--- NOTE | 2021-02-04 11:57 | Consultation ---
History of Present Illness - Reason for Consult Consult date: 02/04/21 Reason for consult: demise - History of Present Psychiatric Illness Master Bradley is a 45y/o female who was seen today. She has experienced a demise. During my evaluation the patient is calm, cooperative and pleasant. She is conversational. She says it was a traumatic experience but states she is handling things okay. The patient says she has told most of the important people in her life and now states she has to tell her two youngest kids. The patient states she's had depression in the past. She denies being on any psych meds or seeing a psychiatrist. She says she was once on prozac for her depression. She says she's been fine without it. She denies SI/HI or any fear of endangerment. The patient also denies any past suicidal attempts or psychiatric inpatient admissions. The patient denies hallucinations of any kind. She also denies any illicit drug use, alcohol or nicotine use. Recommended ongoing therapy with the patient. She agrees with this and would like resources. PAST PSYCHIATRIC HISTORY Diagnoses: depression Suicide attempts or Self-harm behavior: Denies Prior psychiatric hospitalizations: Denies Substance Abuse history: Denies Previous psychiatric medications tried: prozac Outpatient treatment: Denies PAST MEDICAL HISTORY: None report Family Psychiatric History: None reported or documented SOCIAL HISTORY Marital Status: Single Living Arrangements: With children Employment Status: unemployed Access to guns/weapons: Denies Education: History of Abuse: None report Legal History: Findings are none reported REVIEW OF SYSTEMS Constitutional: Negative for weight loss ENT: Negative for stridor Respiratory: Negative for cough or hemoptysis All other systems reviewed and are negative MENTAL STATUS EXAMINATION General Appearance and Behavior: Age appropriate, good hygiene, wearing appropriate clothes, good eye contact, calm, cooperative Cooperation: Participating/engaged Psychomotor Behavior: Psychomotor normal Mood: okay Affect and affective range: irritable, labile Thought Process: goal directed Thought Content: None Speech: Normal rate, volume and rhythm Suicidal Ideation: Denies Homicidal Ideation: Denies Impulse Control: Unimpaired Insight and Judgment: Normal insight and judgment Memory: Normal Attention: Normal Orientation: Alert, oriented Assessment and Plan (1) Hx of depression Treatment Plan No meds or scripts given Risks, benefits and alternatives of medications discussed with the patient, questions answered and consent obtained from patient. PSYCHOTHERAPY: Supportive psychotherapy provided MEDICAL: Per primary team DELIRIUM PRECAUTIONS: Please re-orient patient frequently, keep lights on during the day, and minimize benzodiazepines and opiates as these medications could worsen patient's confusion. PRINCIPAL JAVA DEVELOPER: per primary The ems educator to give the patient resources for outpatient psychiatry to establish for therapy and possible med management DISPOSITION: Do not recommend acute inpatient psychiatric hospitalization at this time. FOLLOW-UP: Will sign off Thank you for the consult. Please contact with any questions and/or concerns. Case staffed with Dr. Rodriguez Medications and Allergies Allergies Allergy/AdvReac Type Severity Reaction Status Date / Time Penicillins Allergy Rash Verified 12/28/13 10:42 Home Medications Medication Instructions Recorded Confirmed Last Taken Type Promethazine [Phenergan] 25 mg PO Q6HR PRN #20 tab 07/21/20 02/01/21 Unknown Rx Ibuprofen [Motrin] 600 mg PO Q8H PRN #60 tablet 02/01/21 Unknown Rx oxyCODONE /ACETAMINOPHEN [Percocet 1 tab PO Q6HR PRN #20 tablet 02/01/21 Unknown Rx 5/325] Active Meds: Active Medications Acetaminophen (Acetaminophen 325 Mg Tab) 650 mg PO Q4H PRN PRN Reason: Pain MILD(1-3)/Fever >100.5/FIELDS Hydrocodone Bitart/Acetaminophen (Hydrocodone/Acetaminophen 5-325 Mg Tab) 2 each PO Q6H PRN PRN Reason: Pain, Moderate (4-6) Last Admin: 02/02/21 21:30 Dose: 2 each Documented by: Butorphanol Tartrate (Butorphanol 2 Mg/1 Ml Inj) 2 mg IV Q2H PRN PRN Reason: Pain , Severe (7-10) Carboprost Tromethamine (Carboprost Tromethamine 250 Mcg/1 Ml Inj) 250 mcg IM ONCE PRN PRN Reason: Uterine Bleeding Diphenhydramine HCl (Diphenhydramine 25 Mg Cap) 25 mg PO Q6H PRN PRN Reason: Itching Last Admin: 02/03/21 22:02 Dose: 25 mg Documented by: Docusate Sodium (Docusate Sodium 100 Mg Cap) 100 mg PO BID GIO Last Admin: 02/04/21 09:40 Dose: 100 mg Documented by: Ephedrine Sulfate (Ephedrine Sulfate 50 Mg/1 Ml Inj) 10 mg IV Q2M PRN PRN Reason: Hypotension Ferrous Sulfate (Ferrous Sulfate 325 Mg Tab) 325 mg PO BID GIO Last Admin: 02/04/21 09:40 Dose: 325 mg Documented by: Oxytocin/Sodium Chloride (Pitocin/Ns 30 Unit/500ml) 30 units in 500 mls @ 2 mls/hr IV TITR GIO; Protocol Last Admin: 01/31/21 08:22 Dose: 1 mls/hr, 1 mls/hr Documented by: Lactated Ringer's (Lactated Ringers) 1,000 mls @ 125 mls/hr IV DIRECT GIO Last Admin: 01/31/21 20:11 Dose: 125 mls/hr Documented by: Fentanyl/Bupivacaine/Sodium Chlor (Fentanyl-Bupiv 2 Mcg/Ml-0.125%) 200 mcg in 100 mls @ 12 mls/hr EPIDURAL TITR GIO; Protocol Last Admin: 01/31/21 20:37 Dose: 12 mls/hr Documented by: Sodium Chloride (Nacl 0.9% 1000 Ml) 1,000 mls @ 42 mls/hr IV DIRECT GIO Last Admin: 02/02/21 02:12 Dose: 42 mls/hr Documented by: Ibuprofen (Ibuprofen 600 Mg Tab) 600 mg PO Q6H GIO Last Admin: 02/04/21 08:55 Dose: 600 mg Documented by: Ketorolac Tromethamine (Ketorolac 30 Mg/1 Ml Inj) 30 mg IV Q6H PRN PRN Reason: Pain, Moderate (4-6) Stop: 02/06/21 01:27 Last Admin: 02/01/21 08:08 Dose: 30 mg Documented by: Loperamide HCl (Loperamide 2 Mg Cap) 2 mg PO ONCE PRN PRN Reason: give with Hemabate Magnesium Hydroxide (Magnesium Hydroxide (Mom) Oral Liqd Udc) 30 ml PO HS PRN PRN Reason: Constipation Last Admin: 02/03/21 15:11 Dose: 30 ml Documented by: Mineral Oil (Mineral Oil 30 Ml Oral Liqd) 30 ml PO QHS PRN PRN Reason: Constipation Misoprostol (Misoprostol 200 Mcg Tab) 800 mcg WV ONCE PRN PRN Reason: Uterine Bleeding Multi-Ingredient Ointment (Lanolin/Zinc/Dimethicone (Lansinoh) 7 Gm) 1 applic TP PRN PRN PRN Reason: Sore Nipples Naloxone HCl (Naloxone 2 Mg/2 Ml Inj) 0.2 mg IV Q5M PRN PRN Reason: Respiratory sedation Ondansetron HCl (Ondansetron 4 Mg/2 Ml Inj) 4 mg IV Q8H PRN PRN Reason: Nausea And Vomiting Oxytocin (Oxytocin 10 Unit/1 Ml Inj) 10 unit IM ONCE PRN PRN Reason: Uterine Bleeding Promethazine HCl (Promethazine 25 Mg Rect Supp) 25 mg W[place] Q6H PRN PRN Reason: Nausea And Vomiting Promethazine HCl (Promethazine 25 Mg Tab) 25 mg PO Q6H PRN PRN Reason: Nausea And Vomiting Sodium Chloride (Sodium Chloride 0.9% 10 Ml Flush Syringe) 10 ml IV PRN NR Stop: 02/07/21 01:59 Terbutaline Sulfate (Terbutaline 1 Mg/1 Ml Inj) 0.25 mg SUB-Q ONCE PRN PRN Reason: Hyperstimulation/Hypertonicity Witch Brandi/Glycerin (Witch Brandi/ Glycerin Pad) 1 each TP PRN PRN PRN Reason: Hemorrhoid/cleansing/soothing Mental Status Exam - Vital signs Last Vital Signs Temp 98.2 F 02/04/21 07:26 Pulse 105 H 02/04/21 07:26 Resp 18 02/04/21 07:26 BP 120/75 02/04/21 07:26 Pulse Ox 98 02/04/21 07:26 Results Result Diagrams: 02/04/21 05:37 02/01/21 13:58 Abnormal lab results 02/03/21 02/04/21 Range/Units 15:56 05:37 WBC 14.5 H (4.5-11.0) K/mm3 RBC 3.11 L (3.65-5.03) M/mm3 Hgb 8.1 L (10.1-14.3) gm/dl Hct 25.0 L (30.3-42.9) % MCH 26 L (28-32) pg RDW 18.7 H (13.2-15.2) % Lymph % (Auto) 12.5 L (13.4-35.0) % [place] # (Auto) 0.9 H (0.0-0.8) K/mm3 Seg Neutrophils % 79.2 H (40.0-70.0) % Seg Neutrophils # 11.5 H (1.8-7.7) K/mm3 Gentamicin Trough 7.3 H* (0-2.0) ug/mL All other labs normal.
--- NOTE | 2021-02-04 12:02 | Progress Note ---
Assessment and Plan A: PP Day #3 S/P full term IUFD delivery Severe Anemia P: Follow Routine Orders Continue FeSO4 325mg PO TID Continue Colace 100mg PO BID S/p Psy Consult: Recommend outpatient counseling D/C Home today RTO in 2 Weeks Subjective - Subjective Date of service: 02/04/21 Principal diagnosis: day 1 S/P vaginal delivery; demise Patient reports: appetite normal, voiding normally, pain well controlled, flatus, bowel movement, ambulating normally, other (States that she feels well and is ready for discharge home) [place]: Objective - Vital Signs Latest vital signs: Vital Signs Temp Pulse Resp BP BP Pulse Ox 02/04/21 07:26 98.2 F 105 H 18 120/75 98 02/04/21 04:30 98.6 F 74 18 103/74 02/04/21 00:00 98 F 71 18 104/72 02/03/21 20:28 98.0 F 98 H 18 113/70 100 02/03/21 15:46 98.5 F 105 H 18 121/71 96 02/03/21 12:25 98.0 F 102 H 20 109/70 96 Intake and Output 02/03/21 02/04/21 02/04/21 22:59 06:59 14:59 Intake Total 400 Balance 400 Intake: Oral 400 Other: Total, Intake Amount 200 # Voids Void 1 1 # Bowel Movements 1 - Exam Breasts: Present: normal Cardiovascular: Present: Regular rate Lungs: Present: Clear to auscultation, Normal air movement Abdomen: Present: normal appearance, soft, normal bowel sounds Uterus: Present: normal, firm, fundal height below umbilicus Extremities: Present: normal - Labs Labs: Abnormal lab results 02/03/21 02/04/21 Range/Units 15:56 05:37 WBC 14.5 H (4.5-11.0) K/mm3 RBC 3.11 L (3.65-5.03) M/mm3 Hgb 8.1 L (10.1-14.3) gm/dl Hct 25.0 L (30.3-42.9) % MCH 26 L (28-32) pg RDW 18.7 H (13.2-15.2) % Lymph % (Auto) 12.5 L (13.4-35.0) % [place] # (Auto) 0.9 H (0.0-0.8) K/mm3 Seg Neutrophils % 79.2 H (40.0-70.0) % Seg Neutrophils # 11.5 H (1.8-7.7) K/mm3 Gentamicin Trough 7.3 H* (0-2.0) ug/mL
--- NOTE | 2021-02-04 12:05 | Discharge Summary ---
Providers - Providers Date of Admission: 01/30/21 12:48 Date of discharge: 02/04/21 Attending physician: NEVILLE LINDSEY MD 02/01/21 10:57 Consult to Case Management [CONS] Routine Services Needed at Discharge: Acrobatic Dancer Notified:: case management Additional Physician Instructions: Grief ( demise) Primary care physician: NEVILLE LINDSEY MD Hospitalization Reason for admission: induction of labor Delivery: Episiotomy: midline Laceration: 4th degree Other procedures: none complications: none Discharge diagnosis: intrapartum demise Condition at discharge: Good Disposition: DC-01 TO HOME OR SELFCARE Plan - Discharge Medications Prescriptions: Ibuprofen [Motrin] 600 mg PO Q8H PRN #60 tablet PRN Reason: Pain oxyCODONE /ACETAMINOPHEN [Percocet 5/325] 1 tab PO Q6HR PRN #20 tablet PRN Reason: Pain - Provider Discharge Summary Activity: routine, no sex for 6 weeks, no heavy lifting 4 weeks, no strenuous exercise Diet: routine Instructions: routine Additional instructions: [] Smoking cessation referral if applicable(refer to patient education folder for contact #) [] Refer to [facility] Booklet Call your doctor immediately for: * Fever > 100.5 * Heavy vaginal bleeding ( >1 pad per hour) * Severe persistent headache * Shortness of breath * Reddened, hot, painful area to leg or breast * Drainage or odor from incision. * Keep incision clean and dry at all times and follow doctor's instructions regarding bathing/showering - Follow up plan Follow up: NEVILLE LINDSEY MD [Primary Care Provider] - 14 Days
[2021-02-04 16:45] VITALS: BP 103/74
== END 2021-02-04 14:50 | disposition home or self-care (01) | DRG 775 ==
LOC: TRG 12:47 → APU 12:48 → LD 12:48 → TRG 13:31 → LD 02-01 03:41 → OB 02-01 03:43
PROVIDERS: ADMIT Obstetrics & Gynecology; ATTEND Obstetrics & Gynecology
PROC: 10907ZC Drainage of Amniotic Fluid, Therapeutic from Products of Conception, Via Natural or Artificial Opening (ICD-10-PCS; 2021-01-31)
PROC: 3E0P7VZ Introduction of Hormone into Female Reproductive, Via Natural or Artificial Opening (ICD-10-PCS; 2021-01-31)
PROC: 3E033VJ Introduction of Other Hormone into Peripheral Vein, Percutaneous Approach (ICD-10-PCS; 2021-01-31)
PROC: 10E0XZZ Delivery of Products of Conception, External Approach (ICD-10-PCS; principal; 2021-02-01)
PROC: 0DQP0ZZ Repair Rectum, Open Approach (ICD-10-PCS; 2021-02-01)
PROC: 3E0R3BZ Introduction of Anesthetic Agent into Spinal Canal, Percutaneous Approach (ICD-10-PCS; 2021-02-01)
PROC: 00HU33Z Insertion of Infusion Device into Spinal Canal, Percutaneous Approach (ICD-10-PCS; 2021-02-01)
PROC: 0W8NXZZ Division of Female Perineum, External Approach (ICD-10-PCS; 2021-02-01)
PROC: 30233N1 Transfusion of Nonautologous Red Blood Cells into Peripheral Vein, Percutaneous Approach (ICD-10-PCS; 2021-02-02)
DX: O36.4XX0 Maternal care for intrauterine death, not applicable or unspecified (principal); Z3A.37 37 weeks gestation of pregnancy; O09.523 Supervision of elderly multigravida, third trimester; Z88.0 Allergy status to penicillin; O99.214 Obesity complicating childbirth; E66.9 Obesity, unspecified; O75.89 Other specified complications of labor and delivery; M79.7 Fibromyalgia; O99.02 Anemia complicating childbirth; D64.9 Anemia, unspecified; O99.62 Diseases of the digestive system complicating childbirth; K21.9 Gastro-esophageal reflux disease without esophagitis; Z37.1 Single stillbirth; O66.0 Obstructed labor due to shoulder dystocia; O70.3 Fourth degree perineal laceration during delivery; H53.8 Other visual disturbances; O99.344 Other mental disorders complicating childbirth; F32.9 Major depressive disorder, single episode, unspecified; Z20.822 Contact with and (suspected) exposure to COVID-19
CPT/HCPCS: 36415; 76815; 80053; 80170; 81001; 85007; 85014; 85018; 85025; 85027; 86592; 86850; 86900; 86901; 86920; 87040; 87086; 88307; G0378; J0690; J1580; J1885; J2210; J2590; J7030; J7120; P9016; U0003